=== PATIENT | male | born 1945 | race African-American/Black ===

== ENCOUNTER 2019-04-18 20:20 | Inpatient (IN) | payer MEDICARE, MEDICAID ==
[~2019-04-18] VITALS: Ht 121.9 cm; Wt 82.1 kg
[2019-04-18] MEDS ORDERED: IPRATROPIUM BROMIDE (0.02%) 0.5MG/2.5ML NEB HHN STA (22:05)
[2019-04-18] MEDS ORDERED: ALBUTEROL (0.083%) 2.5MG/3ML NEB HHN STA (22:05)
[2019-04-18] MEDS ORDERED: METHYLPREDNISOLONE SOD SUCC 125 MG/2 ML VIAL IV STA (22:05)
[2019-04-19 00:41] LABS: BASOPHILS % 0.5 % (0.0-2.0); EOSINOPHILS % 0.3 % (0.0-5.0); HEMATOCRIT. 42.8 % (42.0-52.0); LYMPHOCYTES % 12.7 % (20.0-50.0); MEAN CORPUSCULAR HEMOGLOBIN 31.8 pg (28.0-32.0); MEAN PLATELET VOLUME 10.9 fl (7.4-10.4); MONOCYTES % 8.3 % (2.0-8.0); NEUTROPHILS % 78.2 % (40.0-76.0); PLATELET 100 x1000/uL (130-400); RED BLOOD CELL COUNT 4.41 mill/uL (4.7-6.1); RED CELL DISTRIBUTION WIDTH 15.9 % (11.6-14.6)
[2019-04-19 00:45] LABS: INR 1.1
[2019-04-19 01:53] LABS: CHLORIDE 112 mEq/L (98-107)
[2019-04-19 04:00] VITALS: BP 152/54
[2019-04-19] MEDS ORDERED: METH5TAB2 PO (04:44)
[2019-04-19] MEDS ORDERED: TRAZ-213 PO (04:49)
[2019-04-19] MEDS ORDERED: DOCU250C69 PO (04:50)
[2019-04-19] MEDS ORDERED: ISOS60TA4 PO (04:51)
[2019-04-19] MEDS ORDERED: HYDR-4001 PO (04:52)
[2019-04-19] MEDS ORDERED: GABA-290 PO (04:53)
[2019-04-19] MEDS ORDERED: VALS320T16 PO (04:54)
[2019-04-19] MEDS ORDERED: HYDR100T26 PO (04:54)
[2019-04-19] MEDS ORDERED: SPIR25TA6 PO (04:55)
[2019-04-19] MEDS ORDERED: AMLO10TA80 PO (04:56)
[2019-04-19] MEDS ORDERED: CARD12 PO (04:57)
[2019-04-19] MEDS ORDERED: LEVO500T89 PO (04:58)
[2019-04-19 05:00] VITALS: BP 153/54
[2019-04-19] MEDS ORDERED: MAGNESIUM/ALUMINUM HYDROXIDE/SIMETHICONE 30ML UDC PO PRN (06:30)
[2019-04-19] MEDS ORDERED: ONDANSETRON HCL 4MG/2ML INJ IV PRN (06:30)
[2019-04-19] MEDS ORDERED: ACETAMINOPHEN 325MG TABLET PO PRN (06:30)
[2019-04-19] MEDS ORDERED: IPRATROPIUM/ALBUTEROL 0.5-3(2.5)MG/3ML NEB INH PRN (06:30)
[2019-04-19] MEDS ORDERED: DIPHENHYDRAMINE 50MG/ML VIAL IV PRN (06:30)
[2019-04-19] MEDS ORDERED: DOCUSATE SODIUM 100MG CAPSULE PO PRN (06:30)
[2019-04-19] MEDS ORDERED: DEXTROSE 50% WATER 50ML SYRINGE IV PRN (06:30)
[2019-04-19] MEDS ORDERED: GUAIFENESIN 200MG/10ML SUGAR FREE UDC PO PRN (06:30)
[2019-04-19] MEDS ORDERED: HYDROMORPHONE HCL/PF 2MG/ML CPJ IV PRN (06:30)
[2019-04-19] MEDS ORDERED: NA PHOS,M-B/NA PHOS,DI-BA ENEMA 118ML PR PRN (06:30)
[2019-04-19] MEDS ORDERED: HYDRALAZINE 20MG/ML VIAL IV PRN (06:30)
[2019-04-19] MEDS: BLOOD SUGAR DIAGNOSTIC STRIP TEST SCH ×4 (06:41→21:00)
[2019-04-19] MEDS: INSULIN LISPRO 100 UNITS/ML SUBCUT SCH ×4 (07:50→21:00)
[2019-04-19 08:00] VITALS: BP 146/70
[2019-04-19] MEDS: ENOXAPARIN 40MG/0.4ML SYR SUBCUT SCH (09:00)
[2019-04-19] MEDS: ASPIRIN 81MG EC TABLET PO SCH (09:51)
[2019-04-19] MEDS ORDERED: SODIUM POLYSTYRENE SULFONATE 15 G/60 ML BOT PO SCH (10:30)
[2019-04-19 12:00] VITALS: BP 152/69
[2019-04-19] MEDS ORDERED: SPIRONOLACTONE 25MG TABLET PO SCH (13:00)
[2019-04-19] MEDS ORDERED: MEDICATION NOT ON FORMULARY EA (Valsartan 320 MG) PO SCH (13:15)
[2019-04-19] MEDS ORDERED: METHADONE HCL 5MG TABLET PO SCH (13:15)
[2019-04-19] MEDS ORDERED: MET5 PO (14:12)
[2019-04-19] MEDS: SODIUM CHLORIDE 0.9% INJ 3ML FLUSH IVF SCH ×2 (14:46→22:32)
[2019-04-19] MEDS: METHYLPREDNISOLONE SOD SUCC 40 MG/ML VIAL IV SCH ×2 (14:57→22:32)
[2019-04-19] MEDS: GABAPENTIN 300MG CAPSULE PO SCH ×2 (14:57→22:32)
[2019-04-19] MEDS: AMLODIPINE 10MG TABLET PO SCH (14:57)
[2019-04-19] MEDS: HYDROCODONE/ACETAMINOPHEN 10/325MG TABLET PO PRN (15:12)
[2019-04-19 16:00] VITALS: BP 150/55
[2019-04-19 17:10] LABS: CREATINE KINASE 157 IU/L (39-308)
[2019-04-19 17:11] LABS: CREATINE KINASE MB FRACTION 2.6 ng/mL (0.5-3.6)
[2019-04-19] MEDS: IPRATROPIUM/ALBUTEROL 0.5-3(2.5)MG/3ML NEB HHN SCH ×2 (17:12→20:55)
[2019-04-19 17:41] LABS: CLARITY URINE CLEAR (CLEAR); COLOR URINE DARK YELLOW (YELLOW); KETONES URINE NEGATIVE (NEGATIVE); LEUKOCYTE ESTERASE URINE NEGATIVE (NEGATIVE); NITRITE URINE NEGATIVE (NEGATIVE); OCCULT BLOOD URINE NEGATIVE (NEGATIVE); PROTEIN URINE 2+ (NEGATIVE); SPECIFIC GRAVITY URINE 1.014 (1.005-1.030)
[2019-04-19] MEDS: METHADONE HCL 5MG TABLET PO SCH (19:07)
[2019-04-19 20:00] VITALS: BP 152/70
[2019-04-20] VITALS (7 sets, daily range): BP systolic 125–169; BP diastolic 65–84
[2019-04-20 00:31] LABS: CREATINE KINASE 154 IU/L (39-308)
[2019-04-20] MEDS: IPRATROPIUM/ALBUTEROL 0.5-3(2.5)MG/3ML NEB HHN SCH ×6 (04:39→21:22)
[2019-04-20] MEDS: CLONIDINE 0.1MG TABLET PO PRN (05:04)
[2019-04-20] MEDS: SODIUM CHLORIDE 0.9% INJ 3ML FLUSH IVF SCH ×3 (06:16→20:56)
[2019-04-20] MEDS: GABAPENTIN 300MG CAPSULE PO SCH ×3 (06:16→20:56)
[2019-04-20] MEDS: METHYLPREDNISOLONE SOD SUCC 40 MG/ML VIAL IV SCH ×3 (06:16→20:55)
[2019-04-20] MEDS: BLOOD SUGAR DIAGNOSTIC STRIP TEST SCH ×4 (06:59→20:55)
[2019-04-20] MEDS: ENOXAPARIN 40MG/0.4ML SYR SUBCUT SCH (08:11)
[2019-04-20] MEDS: DILTIAZEM HCL 180MG CAPSULE CD 24HR PO SCH (08:18)
[2019-04-20] MEDS: LOSARTAN POTASSIUM 100 MG TABLET PO SCH (09:00)
[2019-04-20] MEDS: AMLODIPINE 10MG TABLET PO SCH (09:39)
[2019-04-20] MEDS: METHADONE HCL 5MG TABLET PO SCH (09:39)
[2019-04-20] MEDS: ASPIRIN 81MG EC TABLET PO SCH (09:39)
[2019-04-20] MEDS: INSULIN LISPRO 100 UNITS/ML SUBCUT SCH ×4 (09:47→20:57)
[2019-04-20] MEDS: HYDROCODONE/ACETAMINOPHEN 10/325MG TABLET PO PRN (15:36)
[2019-04-20 16:25] LABS: HEMATOCRIT. 39.3 % (42.0-52.0); MEAN CORPUSCULAR HEMOGLOBIN 31.7 pg (28.0-32.0); MEAN CORPUSCULAR VOLUME 96.2 fL (80.0-94.0); MEAN PLATELET VOLUME 10.8 fl (7.4-10.4); PLATELET 112 x1000/uL (130-400); RED BLOOD CELL COUNT 4.09 mill/uL (4.7-6.1); RED CELL DISTRIBUTION WIDTH 15.3 % (11.6-14.6)
[2019-04-20 16:30] LABS: CHLORIDE 108 mEq/L (98-107)
[2019-04-20 16:37] LABS: LDL CHOLESTEROL 100 mg/dL (5-100)
[2019-04-20 16:40] LABS: HDL CHOLESTEROL 55 mg/dL (40-59)
[2019-04-20 16:42] LABS: T4 FREE 1.19 ng/dL (0.76-1.46)
[2019-04-20 18:31] LABS: PLATELET ESTIMATE DECREASED
[2019-04-20] MEDS: LORAZEPAM 2MG/ML CPJ IV PRN (21:58)
[2019-04-21] VITALS (7 sets, daily range): BP systolic 109–162; BP diastolic 60–82
[2019-04-21] MEDS: IPRATROPIUM/ALBUTEROL 0.5-3(2.5)MG/3ML NEB HHN SCH ×7 (00:43→23:54)
[2019-04-21] MEDS: GABAPENTIN 300MG CAPSULE PO SCH ×3 (05:41→22:40)
[2019-04-21] MEDS: SODIUM CHLORIDE 0.9% INJ 3ML FLUSH IVF SCH ×3 (05:41→22:40)
[2019-04-21] MEDS: HYDROCODONE/ACETAMINOPHEN 10/325MG TABLET PO PRN ×2 (05:53→20:32)
[2019-04-21 06:48] LABS: HEMATOCRIT. 39.5 % (42.0-52.0); HEMOGLOBIN. 13.1 g/dL (14.0-18.0); MEAN CORPUSCULAR VOLUME 96.5 fL (80.0-94.0); MEAN PLATELET VOLUME 9.9 fl (7.4-10.4); PLATELET 104 x1000/uL (130-400); RED BLOOD CELL COUNT 4.09 mill/uL (4.7-6.1); RED CELL DISTRIBUTION WIDTH 15.3 % (11.6-14.6)
[2019-04-21] MEDS: BLOOD SUGAR DIAGNOSTIC STRIP TEST SCH ×4 (07:20→21:12)
[2019-04-21] MEDS: DILTIAZEM HCL 180MG CAPSULE CD 24HR PO SCH (08:50)
[2019-04-21] MEDS: LOSARTAN POTASSIUM 100 MG TABLET PO SCH (08:54)
[2019-04-21] MEDS: METHADONE HCL 5MG TABLET PO SCH (08:54)
[2019-04-21] MEDS: ASPIRIN 81MG EC TABLET PO SCH (08:55)
[2019-04-21] MEDS: AMLODIPINE 10MG TABLET PO SCH (08:56)
[2019-04-21] MEDS: ENOXAPARIN 40MG/0.4ML SYR SUBCUT SCH (08:57)
[2019-04-21] MEDS: METHYLPREDNISOLONE SOD SUCC 40 MG/ML VIAL IV SCH (08:58)
[2019-04-21] MEDS: INSULIN LISPRO 100 UNITS/ML SUBCUT SCH ×5 (09:12→21:00)
[2019-04-21] MEDS: BUDESONIDE 0.5MG/2ML NEB HHN SCH ×2 (11:22→21:07)
[2019-04-21 15:37] LABS: CANNABINOID URINE SCREEN NEGATIVE (NEGATIVE)
[2019-04-21 15:38] LABS: *AMPHETAMINES SCREEN URINE NEGATIVE (NEGATIVE); *BARBITURATES SCREEN URINE NEGATIVE (NEGATIVE); *BENZODIAZEPINES SCREEN URINE NEGATIVE (NEGATIVE); *COCAINE SCREEN URINE NEGATIVE (NEGATIVE); METHADONE URINE SCREEN PRESUMTIVE POSITIVE (NEGATIVE)
[2019-04-21 15:39] LABS: OPIATES URINE SCREEN PRESUMTIVE POSITIVE (NEGATIVE); PHENCYCLIDINE URINE SCREEN NEGATIVE (NEGATIVE)
[2019-04-21] MEDS: LORAZEPAM 2MG/ML CPJ IV PRN (20:42)
[2019-04-21 22:50] LABS: PLATELET ESTIMATE DECREASED
[2019-04-22] VITALS: BP 147/70
[2019-04-22] MEDS: HYDROCODONE/ACETAMINOPHEN 10/325MG TABLET PO PRN ×2 (01:21→21:08)
[2019-04-22] MEDS: IPRATROPIUM/ALBUTEROL 0.5-3(2.5)MG/3ML NEB HHN SCH ×5 (03:34→19:53)
[2019-04-22 04:00] VITALS: BP 159/81
[2019-04-22] MEDS: SODIUM CHLORIDE 0.9% INJ 3ML FLUSH IVF SCH ×3 (05:11→21:08)
[2019-04-22] MEDS: GABAPENTIN 300MG CAPSULE PO SCH ×3 (05:37→21:08)
[2019-04-22] MEDS: LORAZEPAM 2MG/ML CPJ IV PRN (05:37)
[2019-04-22 06:23] LABS: HEMATOCRIT. 37.9 % (42.0-52.0); HEMOGLOBIN. 12.7 g/dL (14.0-18.0); MEAN CORPUSCULAR HEMOGLOBIN 32.2 pg (28.0-32.0); MEAN PLATELET VOLUME 10.9 fl (7.4-10.4); PLATELET 115 x1000/uL (130-400); RED BLOOD CELL COUNT 3.94 mill/uL (4.7-6.1); RED CELL DISTRIBUTION WIDTH 14.8 % (11.6-14.6)
[2019-04-22] MEDS: BLOOD SUGAR DIAGNOSTIC STRIP TEST SCH ×4 (07:11→21:08)
[2019-04-22] MEDS: INSULIN LISPRO 100 UNITS/ML SUBCUT SCH ×4 (07:50→21:00)
[2019-04-22 08:00] VITALS: BP 161/79
[2019-04-22] MEDS: BUDESONIDE 0.5MG/2ML NEB HHN SCH ×2 (08:10→19:53)
[2019-04-22] MEDS: DILTIAZEM HCL 180MG CAPSULE CD 24HR PO SCH (09:24)
[2019-04-22] MEDS: ENOXAPARIN 40MG/0.4ML SYR SUBCUT SCH (09:25)
[2019-04-22] MEDS: ASPIRIN 81MG EC TABLET PO SCH (09:25)
[2019-04-22] MEDS: LOSARTAN POTASSIUM 100 MG TABLET PO SCH (09:25)
[2019-04-22] MEDS: AMLODIPINE 10MG TABLET PO SCH (09:25)
[2019-04-22] MEDS: METHADONE HCL 5MG TABLET PO SCH (09:40)
[2019-04-22] MEDS ORDERED: DIATR MEGLU/DIATRIZOATE SOLN 30ML PO SCH (09:45)
[2019-04-22] MEDS ORDERED: DIATR MEGLU/DIATRIZOATE SOLN 30ML PO NR (10:15)
[2019-04-22 12:01] VITALS: BP 171/73
[2019-04-22 13:11] LABS: PLATELET ESTIMATE SLIGHTLY DECREASED
[2019-04-22] MEDS ORDERED: LIDOCAINE HCL 1% 20ML VIAL (Pyxis) INJ ONE (13:26)
[2019-04-22 16:32] VITALS: BP 113/59
[2019-04-22] MEDS: SODIUM CHLORIDE 0.45% 1,000 ML IV SCH (18:16)
[2019-04-22 20:00] VITALS: BP 133/57
[2019-04-23] VITALS (8 sets, daily range): BP systolic 108–180; BP diastolic 53–90
[2019-04-23] MEDS: IPRATROPIUM/ALBUTEROL 0.5-3(2.5)MG/3ML NEB HHN SCH ×5 (00:29→22:37)
[2019-04-23] MEDS: SODIUM CHLORIDE 0.45% 1,000 ML IV SCH ×2 (03:48→19:05)
[2019-04-23] MEDS: GABAPENTIN 300MG CAPSULE PO SCH ×3 (05:51→22:13)
[2019-04-23] MEDS: SODIUM CHLORIDE 0.9% INJ 3ML FLUSH IVF SCH ×3 (05:55→22:17)
[2019-04-23 06:19] LABS: INR 1.1; PROTHROMBIN TIME 11.4 sec (9.6-11.0)
[2019-04-23] MEDS: BLOOD SUGAR DIAGNOSTIC STRIP TEST SCH ×4 (07:05→21:00)
[2019-04-23] MEDS: INSULIN LISPRO 100 UNITS/ML SUBCUT SCH ×4 (07:50→21:00)
[2019-04-23] MEDS: METHADONE HCL 5MG TABLET PO SCH (08:04)
[2019-04-23] MEDS: BUDESONIDE 0.5MG/2ML NEB HHN SCH (08:15)
[2019-04-23] MEDS: ASPIRIN 81MG EC TABLET PO SCH (09:00)
[2019-04-23] MEDS: AMLODIPINE 10MG TABLET PO SCH (09:00)
[2019-04-23] MEDS: ENOXAPARIN 40MG/0.4ML SYR SUBCUT SCH (09:00)
[2019-04-23] MEDS: LOSARTAN POTASSIUM 100 MG TABLET PO SCH (09:00)
[2019-04-23] MEDS: DILTIAZEM HCL 180MG CAPSULE CD 24HR PO SCH (09:00)
[2019-04-23] MEDS: HYDROCODONE/ACETAMINOPHEN 10/325MG TABLET PO PRN ×2 (13:21→22:15)
[2019-04-23] MEDS: CLONIDINE 0.1MG TABLET PO PRN (20:36)
== END 2019-04-24 00:40 | disposition home or self-care (01) | DRG 189 ==
LOC: ER 20:20 → 6WST 04-19 01:34 → EDBEDREQ 04-19 01:43 → EDBEDREQTM 04-19 01:43 → EDBEDREQDT 04-19 01:43 → ENRESERV 04-19 03:29
PROVIDERS: ADMIT Internal Medicine; ATTEND Internal Medicine
PROC: 05H833Z Insertion of Infusion Device into Left Axillary Vein, Percutaneous Approach (ICD-10-PCS; principal; 2019-04-22)
PROC: B51N1ZA Fluoroscopy of Left Upper Extremity Veins using Low Osmolar Contrast, Guidance (ICD-10-PCS; 2019-04-22)
PROC: B54NZZA Ultrasonography of Left Upper Extremity Veins, Guidance (ICD-10-PCS; 2019-04-22)
DX: J96.00 Acute respiratory failure, unspecified whether with hypoxia or hypercapnia (principal); N17.0 Acute kidney failure with tubular necrosis; E43 Unspecified severe protein-calorie malnutrition; J44.1 Chronic obstructive pulmonary disease with (acute) exacerbation; E87.2 Acidosis; Z68.43 Body mass index [BMI] 50.0-59.9, adult; E87.5 Hyperkalemia; F17.210 Nicotine dependence, cigarettes, uncomplicated; G89.4 Chronic pain syndrome; D69.6 Thrombocytopenia, unspecified; E11.22 Type 2 diabetes mellitus with diabetic chronic kidney disease; H54.62 Unqualified visual loss, left eye, normal vision right eye; E11.51 Type 2 diabetes mellitus with diabetic peripheral angiopathy without gangrene; F32.9 Major depressive disorder, single episode, unspecified; R16.0 Hepatomegaly, not elsewhere classified; B19.20 Unspecified viral hepatitis C without hepatic coma; D72.823 Leukemoid reaction; T38.0X5A Adverse effect of glucocorticoids and synthetic analogues, initial encounter; N18.3 Chronic kidney disease, stage 3 (moderate); N28.1 Cyst of kidney, acquired; N20.0 Calculus of kidney; K74.60 Unspecified cirrhosis of liver; I13.10 Hypertensive heart and chronic kidney disease without heart failure, with stage 1 through stage 4 chronic kidney disease, or unspecified chronic kidney disease; Z87.01 Personal history of pneumonia (recurrent); Z89.511 Acquired absence of right leg below knee; Z79.899 Other long term (current) drug therapy; Y92.89 Other specified places as the place of occurrence of the external cause; Z89.512 Acquired absence of left leg below knee; Z71.89 Other specified counseling
CPT/HCPCS: 36415; 36569; 36573; 71045; 74176; 76700; 80048; 80061; 80076; 80305; 82105; 82378; 82550; 82553; 82962; 83735; 83880; 84132; 84439; 84443; 84484; 86301; 86803; 93005; 94640; 99285; C1725; C1893; J0360; J1650; J1815; J2060; J2920; J2930; J3490; J7040; J7620; J7626; Q9963